=== PATIENT | male | born 1950 | race Caucasian/White ===

== ENCOUNTER 2019-07-26 07:26 | Outpatient (CLI) | payer MEDICARE ==
[~2019-07-26] VITALS: Ht 167.6 cm; Wt 91.7 kg
--- NOTE | ~2019-07-26 | HEMODYNAMI ---
PATIENT:MOLINA CHOE MEDICAL RECORD: [id number] : 48 LOCATION:[facility] ADMISSION DATE: 07/26/19 Generatedon:07/26/201910:19 Patient name: MOLINA CHOE Patient #: [id number] SSN: [id number] : 1950 Date of study: 07/26/2019 Page: Of Hemodynamic Procedure Report Patient Data Patient Demographics Procedure consent was obtained First Name: MOLINA Gender: Male Last Name: ДМИТРИЙ : 1950 [facility] Initial: SUDEEP Age: 68 year(s) Patient #: [id number] Race: SSN: [id number] Additional ID: [id number] Contact details [address]: [address] [place] [address] State: [place] City: [place] Zip code: [address] Past Medical History Allergies Allergen Reaction Date Comments Reported Other allergy 07/26/2019 hydrocodone Admission Admission Data Admission Date: 07/26/2019 Admission Time: 7:26 Arrival Date: 07/26/2019 Arrival Time: 8:30 Admit Source: Other Insurance Payor: Medicare [facility] #: [id number] Height (in.): 66 BSA: 2.01 (m2) Height (cm.): 167.64 BMI: 32.64 (kg/m2) Weight (lbs.): 202.21 Weight (kg.): 91.72 Lab Results Lab Result Date: 07/26/2019 Lab Result Time: 0:00 Biochemistry Name Units Result Min Max BUN mg/dl 26 --(----)-* 7 18 Creatinine mg/dl 1 --(--*-)-- 0.6 1.3 eGFR ml/min 79.00990 *-(----)-- 90 120 NONAFRICAN CBC Name Units Result Min Max Hematocrit % 40.3 -*(----)-- 42 54 Hemoglobin g/dl 13.7 --(*---)-- 13.5 17.5 Procedure Procedure Types Cath Procedure Diagnostic Procedure [facility] w/Coronaries FFR/IVUS FFR Initial FFR Additional Sedation Charges Moderate Sedation up to 30 minutes PCI Procedure Hemochron ACT Test Procedure Description Procedure Date Procedure Date: 07/26/2019 Procedure Start Time: 9:36 Procedure End Time: 10:18 Procedure Staff Name Function Den Lantigua MD Performing Physician Amrita Barbosa RT Monitor Deb Chavez RT Scrub Tad Melendez RN Nurse Procedure Data Cath Procedure Fluoroscopy Diagnostic fluoroscopy Total fluoroscopy Time: 7.8 time: 7.8 min min Diagnostic fluoroscopy Total fluoroscopy dose: dose: 1067 mGy 1067 mGy Contrast Material Contrast Material Type Amount (ml) Isovue 300 120 Entry Location Entry Primary Successful Side Size Upsize Upsize Entry Closure Lopez ccessful Closure Location (Fr) 1 (Fr) 2 (Fr) Remarks Device Remarks Radial Right 6 Fr Mechanical artery Short Compression Femoral Right 5 Fr Exoseal artery Estimated blood loss: 10 ml Diagnostic catheters Device Type Used For End Catheter Placement DIAGNOSTIC Charlie 110cm Procedure 5Fr catheter ([id number]) MULTIPACK JL 4.0 5Fr Procedure catheter MULTIPACK 3DRC 5Fr Procedure catheter MULTIPACK Pigtail 5 Fr Procedure catheter Procedure Complications No complications Procedure Medications Medication Administration Route Dosage Oxygen etCO2 Nasal cannula 2 l/min Lidocaine 2% added to field 20 Heparin Flush Bag added to field 2 bags (1000units/500ml NS) 0.9% NaCl I.V. 100 ml/hr Radial Cocktail I.A. 1 syringe (Verapamil 2mg/Nitro 400mcg/Heparin 1500units) Versed I.V. 1 mg Fentanyl I.V. 50 mcg Fentanyl I.V. 50 mcg Heparin Bolus I.V. 2000 units Hemodynamics Rest BSA: 2.01 (m2) HGB: 13.7 (g/dl) O2 Consumption: Estimated: 221.57 (ml/min) O2 Co nsumption indexed: Estimated:110.23 (ml/min/m) Heart Rate: 55 (bpm) Pressure Samples Time Site Value (mmHg) Purpose Heart Use Rate(bpm) 9:41 LV 113/75,75 Snapshot 56 9:51 LV 155/11,29 Snapshot 55 9:52 AO 129/62(91) Pullback 52 9:52 LV 113/18,24 Pullback 52 Gradients Valve Time Site 1 Site 2 Mean SEP/DFP Peak To Heart Use (mmHg) (sec/min) Peak Rate (mmHg) (bpm) Aortic 9:52 LV AO 0 12 0 52 113/18,24 129/62(91) Calculations Valve P-P Mean Valve Index Valve Source Name Gradient Area Flow (cm2) Aortic 0 0 0 0 Snapshots Pre Cath Intra NCS Post Cath Vital Signs Time Heart Resp SPO2 etCO2 NIBP (mmHg) Rhythm Pain Sedation Rate (ipm) (%) (mmHg) Status Level (bpm) 9:24:13 53 13 96 0 171/88(112) NSR 0 (11) 10(A) , No pain 9:28:27 52 14 95 44.3 166/95(130) NSR 0 (11) 10(A) , No pain 9:32:45 52 16 94 29.5 138/83(94) NSR 0 (11) 10(A) , No pain 9:36:53 51 14 95 35.5 134/82(97) NSR 0 (11) 9(A) , No pain 9:41:05 55 16 94 39.2 123/63(88) NSR 0 (11) 9(A) , No pain 9:45:11 53 16 94 43.7 118/67(90) NSR 0 (11) 9(A) , No pain 9:49:14 55 14 94 45.1 124/74(95) NSR 0 (11) 9(A) , No pain 9:53:22 54 14 96 46.6 118/65(96) NSR 0 (11) 9(A) , No pain 9:57:26 51 15 95 45.9 118/69(92) NSR 0 (11) 9(A) , No pain 10:01:34 51 13 96 45.1 121/60(79) NSR 0 (11) 9(A) , No pain 10:05:40 49 10 96 45.1 118/65(82) NSR 0 (11) 9(A) , No pain 10:09:39 51 15 95 44.4 126/77(96) NSR 0 (11) 10(A) , No pain 10:14:34 53 9 97 45.9 154/97(137) NSR 0 (11) 10(A) , No pain Medications Time Medication Route Dose Verified Delivered Reason Note s Effectiveness by by 9:23:18 Oxygen etCO2 2 l/min Den Buffie used for Nasal Grzegorz Melendez RN procedure cannula 9:23:25 Lidocaine 2% added 20ml Den Den for local to vial Grzegroz Lantigua MD anesthetic field 9:23:31 Heparin Flush added 2 bags Den Den used for Bag to Grzegorz Lantigua MD procedure (1000units/500ml field NS) 9:23:40 0.9% NaCl I.V. 100 Den Buffie Per physician ml/hr Grzegorz Melendez RN 9:32:05 Versed I.V. 1 mg Den Buffie for sedation Grzegorz Melendez RN 9:33:12 Fentanyl I.V. 50 mcg Den Buffie for sedation Grzegorz Melendez RN 9:38:29 Radial Cocktail I.A. 1 Den Den for (Verapamil syringe Grzegorz Lantigua MD vasodilation 2mg/Nitro 400mcg/Heparin 1500units) 9:41:44 Fentanyl I.V. 50 mcg Den Buffie for sedation Grzegorz Melendez RN 9:55:33 Heparin Bolus I.V. 2000 Den Buffie for for IFR units Grzegorz Melendez RN anticoagulation measurement, verified with dr lantigua Procedure Log Time Note 9:01:28 Informed consent obtained and on chart 9:01:35 Diagnostic Cath Status : Elective 9:02:40 Arrival Date: 07/26/2019 8:30:00 AM 9:02:55 Insurance Payor : Medicare 9:02:57 Admit Source: Other 9:03:37 Procedure Status Elective Heart Cath (OP). 9:03:40 Tad Melendez RN sent for patient. Start room use. 9:03:41 Time tracking: Regular hours (M-F 7:00 - 5:00) 9:03:45 Plan of Care:Hemodynamics will remain stable., Cardiac rhythm will remain stable., Comfort level will be maintained., Respiratory function will remain adequate., Patient/ family verbilizes understanding of procedure., Procedure tolerated without complication., Recovers from procedure without complications.. 9:05:01 Family member Claudio notified and update given. 9:12:35 Patient allergic to Other allergyhydrocodone 9:12:49 Patient Height : 66 inches 9:12:53 Patient Weight : 202.21 lbs 9:14:34 Lab Result : BUN 26 mg/dl 9:14:34 Lab Result : Hemoglobin 13.7 g/dl 9:14:34 Lab Result : eGFR NONAFRICAN 79.04700 ml/min 9:14:34 Lab Result : Creatinine 1 mg/dl 9:14:34 Lab Result : Hematocrit 40.3 % 9:14:57 H&P Date Dictated: 07/23/2019 Within 30 days and on chart.. 9:14:58 Pre-procedure instructions explained to patient. 9:14:58 Pre-op teaching completed and patient verbalized understanding. 9:15:00 Family unavailable. 9:15:02 Patient NPO since Midnight. 9:15:07 Lab results completed and on chart. 9:15:32 Stress Test: no; N/A ? 9:17:12 Risk of Mortality: .1 9:17:14 Risk of blood transfusion: .1 9:17:17 Risk of MAUREEN: .2 9:17:18 Alarms reviewed by R. N. 9:17:19 Sharps counted by scrub and verified by R.N. 9:17:24 Patient received from Pre/Post Procedure Room to CCL 1 Alert and oriented. Tansferred to table in Supine position. 9:17:26 Warm blankets applied, and funmilayo hugger turned on for patient comfort. 9:17:26 Correct patient and procedure confirmed by team. 9:17:27 ECG and BP/O2 sat monitors applied to patient. 9:17:32 Is the patient allergic to Iodine/contrast media? No. 9:17:36 Was the patient premedicated? N/A 9:17:37 Is patient on blood thinner?No 9:17:39 Patient diabetic? Yes. 9:17:41 If diabetic: On Metformin? No 9:17:42 ----Pre-sedation anethsthesia assessment.---- 9:17:45 Previous problem with sedation/anesthesia? No ? 9:17:46 Snore? Yes 9:17:48 Sleep apnea? Unknown 9:17:50 Deviated septum? No 9:17:51 Opens mouth fully? Yes 9:17:52 Sticks out tongue? Yes 9:17:55 Airway obstruction? Yes COPD 9:18:00 Dentures? Yes IN TIGHT 9:18:08 Patient pain scale 0/10 ?. 9:23:07 Vital chart was started 9:23:18 Oxygen 2 l/min etCO2 Nasal cannula was administered by Tad Melendez RN; used for procedure; Verbal order read back and verified. 9:23:25 Lidocaine 2% 20ml vial added to field was administered by Den Lantigua MD; for local anesthetic; Verbal order read back and verified. 9:23:31 Heparin Flush Bag (1000units/500ml NS) 2 bags added to field was administered by Den Lantigua MD; used for procedure; Verbal order read back and verified. 9:23:40 0.9% NaCl 100 ml/hr I.V. was administered by Tad Melendez RN; Per physician; Verbal order read back and verified. 9:28:43 IV patent on arrival in left antecubital with 0.9% NaCl at [facility]. 9:28:48 Modified James's test Ulnar < 7 seconds 9:28:53 Right Radial & Right Groin area was prepped with chlora-prep and draped in sterile fashion 9:28:59 Use device set Radial Dx or PCI 9:29:00 ACIST Syringe (57561) opened to sterile field. 9:29:01 Medline Cath Pack ([id number]) opened to sterile field. 9:29:01 Bag Decanter (2002S) opened to sterile field. 9:29:02 ACIST Hand Control (70777) opened to sterile field. 9:29:03 ACIST Manifold (71913) opened to sterile field. 9:29:04 MBrace Wrist Support ([id number]) opened to sterile field. 9:29:04 NEEDLE Cook 21G 4cm Radial ([id number]) opened to sterile field. 9:29:06 EMERALD Guide Wire (211-946) opened to sterile field. 9:29:07 SHEATH 6FR RAIN ([id number]) opened to sterile field. 9:29:17 Full Disclosure recording started 9:29:19 Baseline sample Acquired. 9:29:24 Rhythm: sinus bradycardia 9:31:10 --------ALL STOP TIME OUT------ 9:31:11 Final Timeout: patient, procedure, and site verified with staff and physician. All members of the team are in agreement. 9:31:13 Right Radial & Right Groin site verified by team. 9:31:17 Fire Safety Assessment: A--An alcohol-based skin anteseptic being used preoperatively., C--Open oxygen or nitrous oxide is being used., D--An ESU, laser, or fiber-optic light is being used. 9:31:20 Physical assessment completed. ASA score P 2 - A patient with mild systemic disease as per Den Lantigua MD. 9:31:23 2) 60-89 Mildly reduced kidney function, and other findings (as for stage 1) point to kidney disease. 9:31:25 Maximum allowable contrast dose (3.7 X eGFR X 0.75)219 ml. 9:31:30 Sedation plan: IV Moderate Sedation Medication:Versed, Fentanyl 9:32:05 Versed 1 mg I.V. was administered by Tad Melendez RN; for sedation; Verbal order read back and verified. 9:33:12 Fentanyl 50 mcg I.V. was administered by Tad Melendez RN; for sedation; Verbal order read back and verified. 9:36:10 Procedure started. 9:36:27 Local anesthetic to right radial artery with Lidocaine 2% by Den Lantigua MD.INITIAL ACCESS ONLY 9:37:18 Zero performed for pressure channel P1 9:37:45 A 6 Fr Short sheath was inserted into the Right Radial artery 9:38:29 Radial Cocktail (Verapamil 2mg/Nitro 400mcg/Heparin 1500units) 1 syringe I.A. was administered by Den Lantigua MD; for vasodilation; Verbal order read back and verified. 9:39:07 A DIAGNOSTIC Cahrlie 110cm 5Fr catheter (494405) was advanced over the wire and used for Procedure. 9:41:44 Fentanyl 50 mcg I.V. was administered by Tad Melendez RN; for sedation; Verbal order read back and verified. 9:42:25 UNABLE TO ENGAGE GOING RT FEMORAL ARTERY. 9:42:26 Catheter removed. 9:42:34 Local anesthetic to right femoral artery with Lidocaine 2% by Den Lantigua MD.ADDITIONAL ACCESS 9:43:51 A 5 Fr sheath was inserted into the Right Femoral artery 9:43:53 SHEATH 5FR [place] ([id number]) opened to sterile field. 9:44:04 Use device set Femoral Dx 9:44:09 DIAGNOSTIC Multipack 5Fr catheter set ([id number]) opened to sterile field. 9:44:47 USED JWIRE TO INSERT SHEATH INTO FEMORAL ARTERY. 9:44:55 A MULTIPACK JL 4.0 5Fr catheter was advanced over the wire and used for Procedure. 9:45:53 LCA angiography performed. 9:45:56 Injector settings: Ml/sec: 3, Volume: 6, 9:48:02 Catheter exchanged over wire. 9:49:04 A MULTIPACK 3DRC 5Fr catheter was advanced over the wire and used for Procedure. 9:49:32 RCA angiography performed. 9:49:37 Injector settings: Ml/sec: 3, Volume: 6, 9:49:50 ACCDominant side:Right 9:49:56 Catheter exchanged over wire. 9:50:31 A MULTIPACK Pigtail 5 Fr catheter was advanced over the wire and used for Procedure. 9:50:39 LV gram done using MARTINEZ 9:51:31 LV hemodynamics recorded. 9:51:35 Injector settings: Ml/sec: 5, Volume: 15, 9:51:43 EF : 60 % 9:52:25 Aortic Root visualized 9:52:32 Injector settings: Ml/sec: 10, Volume: 20, 9:52:34 Catheter exchanged over wire. 9:52:35 Catheter removed. 9:53:48 Proceeding to intervention. 9:53:53 Use device set NEMO Equipment PCI 9:54:06 INFLATOR Merit BasixCompak (CB6606) opened to sterile field. 9:54:10 TUBING High Pressure Extension Tubing (Lantigua) (UI6135V) opened to sterile field. 9:54:19 Hoyt Verrata Plus pressure wire (98024V) opened to sterile field. 9:54:46 5 Fr JL 4 guide catheter was inserted over the wire 9:55:33 Heparin Bolus 2000 units I.V. was administered by Tad Melendez RN; for anticoagulation; for IFR measurement, verified with dr lantigua Verbal order read back and verified. 9:56:52 FFR/IFR wire advanced. 9:58:27 Zero performed for pressure channel P1 10:01:22 Wire advanced across lesion. 10:04:02 mLAD lesion measured at .92 with IFR 10:07:07 Wire redirected to LAD. 10:07:10 mLAD lesion measured at .68 with IFR 10:09:21 Wire removed. 10:09:22 Guide catheter removed. 10:09:36 EXOSEAL 5Fr (EX500) opened to sterile field. 10:09:48 Sheath removed intact; hemostasis achieved with Exoseal to the Right Femoral artery. 10:09:58 Sheath removed intact; hemostasis achieved with Mechanical Compression to the Right Radial artery. 10:10:05 ZEPHYR REGULAR TR BAND (951508) opened to sterile field. 10:10:07 Procedure ended.(Physican Out) 10:12:24 Fluoroscopy time 07.80 minutes. 10:12:34 Flurop Dose total: 1067 10:12:34 Fluoroscopy dose: 1067 mGy 10:12:47 Dose Area Product 68506 mGy/cm. 10:12:51 Contrast amount:Isovue 300 120ml. 10:12:54 Maximum allowable dose exceeded? No. 10:12:55 Sharps counted by scrub and verified by R.N. 10:13:03 Post-op/insertion site Right Femoral artery dressed using a 4 x 4 and Tegaderm. 10:13:07 Post Procedure Pulses reassessed and unchanged 10:13:12 Post-procedure physical assessment completed. ASA score P 2 - A patient with mild systemic disease as per Den Lantigua MD. 10:13:15 Post procedure rhythm: unchanged. 10:13:18 Estimated blood loss: 10 ml 10:13:23 [place] band inflated with 10cc of air. 10:13:24 Post procedure instruction explained to patient.Patient verbalizes understanding. 10:13:25 Patient needs reinforcement of post procedure teaching. 10:14:13 Procedure type changed to Cath procedure, Diagnostic procedure, C, [facility] w/Coronaries, FFR/IVUS, FFR Initial, FFR Additional, Sedation Charges, Moderate Sedation up to 30 minutes, PCI procedure, Hemochron ACT Test 10:14:16 Procedure and supply charges have been captured, reviewed, submitted and are correct. 10:14:20 Procedure Complication : No complications 10:14:23 Vital chart was stopped 10:14:27 ACT drawn and resulted at 355 seconds. (normal therapeutic range 180-240 seconds). 10:17:53 [facility] Findings: MVD- PCI performed (see procedure note) 10:17:54 Operative report dictated upon procedure completion. 10:17:55 See physician's report for complete and final results. 10:17:57 Report given to Pre/Post Procedure Room. 10:18:01 Patient transfered to Pre/Post Procedure Room with Stretcher. 10:18:05 Procedure ended. 10:18:05 Full Disclosure recording stopped 10:18:12 End room use (Document Last) 10:19:00 End room use (Document Last) 10:19:25 End room use (Document Last) Device Usage Item Name Manufacture Quantity Catalog Hospital Part Current Mini mal Lot# / Number Charge Number Stock Stock Serial# Code ACIST Acist 1 05896 408012 096189 765969 20 Syringe Medical (11094) Systems Inc Medline Medline 1 [id number] 658150 90383 755660 5 Cath Pack ([id number]) Bag Microtek 1 414393 53567 579307 5 Decanter Medical Inc. () ACIST Hand Acist 1 66237 699700 172364 081607 5 Control Medical (44240) Systems Inc ACIST Acist 1 91016 285221 862819 382814 5 Manifold Medical (01009) Systems Inc MBrace Advanced 1 140-0250-00 348577 29744 310687 5 Wrist Vascular Support Dynamics (252521371) NEEDLE Cook Cook Medical 1 [id number] 477039 506695 775693 5 21G 4cm Radial (F00779) EMERALD Cardinal 1 502-455 479791 559505 838562 5 Guide Wire Health (502-455) SHEATH 6FR Cardinal 1 1513392 169001 5837179 380005 5 [facility] (5816293) DIAGNOSTIC Terumo 1 40-5023 051631 586230 968922 5 Charlie 110cm 5Fr catheter (472318) DIAGNOSTIC Cardinal 1 GD2466 297872 36303 033686 30 Multipack Health 5Fr catheter set (CV4234) MULTIPACK Cardinal 1 040467 5 JL 4.0 5Fr Health catheter MULTIPACK Cardinal 1 683578 5 3DRC 5Fr Health catheter MULTIPACK Cardinal 1 878096 5 Pigtail 5 Health Fr catheter INFLATOR Merit 1 PX5530 423509 114986 828749 15 Guest of a Guest Medical BasixCompak (UR2473) TUBING High Merit 1 [id number] 795571 03152 755505 10 Pressure Medical Extension Tubing (Lantigua) (IV4314S) Hoyt Hoyt 1 35696Q 525549 190745721 824257 5 Verrata Plus pressure wire (13593I) EXOSEAL 5Fr Cardinal 1 EX500 225863 549933 345289 10 (EX500) Health ZEPHYR Cardinal 1 517643 217186 4330229 810434 5 REGULAR TR Health BAND (597695) SHEATH 5FR Terumo 1 WQD628 663798 890347 485331 5 [place] (CQV565) Signature Audit [place] Stage Time Signature Unsigned Intra-Procedure 07/26/2019 Amrita Barbosa 10:19:00 AM RT(R) Intra-Procedure 07/26/2019 Tad Melendez RN 10:19:25 AM Intra-Procedure 07/26/2019 Den Lantigua MD 10:19:39 AM [place] [address] [place] [address]
[2019-07-26 08:23] VITALS: BP 129/80; Ht 167.6 cm; Wt 91.7 kg
[2019-07-26] MEDS ORDERED: BASAGLAR K100 UNIT/1 SC (08:27)
[2019-07-26] MEDS ORDERED: ISOSORBIDE MONO30 M1 PO (08:28)
[2019-07-26] MEDS ORDERED: COREG25 MG PO (08:28)
[2019-07-26] MEDS ORDERED: OMEPRAZOLE40 MG PO (08:29)
[2019-07-26] MEDS ORDERED: LISINOPRIL20 MG PO (08:29)
[2019-07-26] MEDS ORDERED: HCTZ25 MG PO (08:29)
[2019-07-26] MEDS ORDERED: NYSTATIN1 PWD TOPICAL (08:30)
[2019-07-26] MEDS ORDERED: ZOLOFT100 MG PO (08:30)
[2019-07-26] MEDS ORDERED: MIRAPEX0.5 MG PO (08:30)
[2019-07-26] MEDS ORDERED: LOVASTATIN20 MG PO (08:31)
[2019-07-26] MEDS ORDERED: NOVOLOG100 UNIT/1 SC (08:32)
[2019-07-26 08:34] LABS: BASOPHILS 1.6 % (0-2); EOSINOPHILS 3.6 % (0-7); HEMATOCRIT 40.3 % (42.0-54.0); HEMOGLOBIN 13.7 g/dL (13.5-17.5); IMMATURE GRANULOCYTES 0.2 % (0-5); LYMPHOCYTES 25.2 % (15-50); MCH 28.2 pg (26.0-34.0); MCV 82.9 fL (80.0-100.0); MEAN PLATELET VOLUME 9.2 fL (7.4-10.4); MONOCYTES 9.7 % (2-11); NEUTROPHILS 59.7 % (40-80); PLATELET COUNT 149 10x3/uL (130-400); RBC 4.86 10x6/uL (4.20-6.10); RDW 13.6 % (11.5-14.5)
[2019-07-26 08:47] LABS: ALT (SGPT) 29 U/L (10-68); CALC OSMOLALITY 287 mosm/kg (275-300); CALCIUM 8.5 mg/dL (8.5-10.1); CARBON DIOXIDE 27.6 mmol/L (21.0-32.0); CHLORIDE - SERUM 100 mmol/L (98-107); CHOL - HDL RATIO 3.3 ratio (2.3-4.9); CHOLESTEROL, TOTAL 137 mg/dL (0-200); GLUCOSE 304 mg/dL (74-106); HDL CHOLESTEROL 42 mg/dL (32-96); LDL CHOLESTEROL 62 mg/dL (0-100); LDL-HDL RATIO 1.5 ratio (1.5-3.5); POTASSIUM - SERUM 3.9 mmol/L (3.5-5.1); SODIUM 136 mmol/L (136-145); TRIGLYCERIDE 165 mg/dL (30-200); UREA NITROGEN 26 mg/dL (7-18); eGFR NON AFRICAN AMERICAN 79 mL/min (90-120)
--- NOTE | 2019-07-26 10:30 | NUR ---
REC'D TO ROOM 5 FROM REFINERY OPERATOR. MONITORS ESTAB. PT DROWSY, FOLLOWS COMMANDS. SEE DIABETES TERRITORY MANAGER - ALARMS ON AND C/L IN REACH.
--- NOTE | 2019-07-26 10:45 | NUR ---
R GROIN AND WRIST SITES C/D/I, NO S/S BLEEDING OR HEMATOMA. VSS. PT RESTING QUIETLY. ALARMS ON AND C/L IN REACH.
--- NOTE | 2019-07-26 11:15 | NUR ---
R GROIN SITE SOFT, NO S/S BLEEDING OR HEMATOMA. R WRIST Z BAND C/D/I, NO S/S BLEEDING OR HEMATOMA. PT RESTING QUIETLY. ALARMS ON AND C/L IN REACH.
--- NOTE | 2019-07-26 11:25 | NUR ---
DR. BOSS IN TO SEE PT. R GROIN SITE AND R WRIST SITE C/D/I. VSS. GIVEN ICE CHIPS PER REQUEST.
--- NOTE | 2019-07-26 11:55 | NUR ---
R GROIN SITE SOFT, NO S/S BLEEDING OR HEMATOMA. R WRIST SITE C/D/I, FEET AND HANDS WARM WITH PALP PULSES. VSS. PT RESTING QUIETLY, DENIES NEEDS.
--- NOTE | 2019-07-26 12:30 | NUR ---
BOTH THE R GROIN AND R WRIST SITES ARE C/D/I. 5 CC AIR REMOVED FROM Z BAND - NO SIGN OF BLEEDING. HOB ELEVATED AND PT GIVEN A SANDWICH AND DIET COLA PER REQUEST.. ALARMS ON AND C/L IN REACH.
--- NOTE | 2019-07-26 12:45 | NUR ---
ALL AIR REMOVED FROM Z BAND, NO S/S BLEEDING. R GROIN SITE SOFT, C/D/I. PT DENIES ANY N/V OR PAIN. C/L IN REACH.
--- NOTE | 2019-07-26 13:15 | NUR ---
R WRIST SITE C/D/I. Z BAND REMOVED AND DSG APPLIED. PIV D/C'D INTACT - DSG APPLIED. R GROIN SITE SOFT, C/D/I. PT UP TO BR INDEPENDENTLY, AND BACK TO ROOM TO GET DRESSED.
--- NOTE | 2019-07-26 13:30 | NUR ---
ALL DISCHARGE INSTRUCTIONS REVIEWED - INCLUDING RESTRICTIONS, FOLLOW-UP AND NEW PRESCRIPTION. PT VERBALIZES UNDERSTANDING. NO QUESTIONS AT THIS TIME. PT D/C'D VIA WC TO PRIVATE VEHICLE WITH SON. PT HAS ALL PAPERWORK AND BELONGINGS.
== END 2019-07-26 13:30 | disposition home or self-care (01) ==
LOC: D.CATH 07:26
PROVIDERS: ATTEND Internal Medicine Cardiovascular Disease
DX: I25.110 Atherosclerotic heart disease of native coronary artery with unstable angina pectoris (principal); R07.9 Chest pain, unspecified; I45.10 Unspecified right bundle-branch block; E11.9 Type 2 diabetes mellitus without complications; I10 Essential (primary) hypertension; E78.5 Hyperlipidemia, unspecified